=== PATIENT | female | born 1970 | race Caucasian/White ===

== ENCOUNTER → 2021-03-04 00:37 | Outpatient (CLI) | payer OTHER, SELFPAY ==
[2021-03-04 20:36] LABS: SARS-CoV-2 RNA PCR Negative
== END ==
PROVIDERS: PCP Internal Medicine; Visit Provider Internal Medicine Critical Care Medicine
DX: R68.89 Other general symptoms and signs (principal); Z20.822 Contact with and (suspected) exposure to COVID-19
CPT/HCPCS: C9803; U0003; U0005

== ENCOUNTER → 2021-03-25 04:52 | Outpatient (CLI) | payer OTHER, SELFPAY ==
[2021-03-25 21:09] LABS: SARS-CoV-2 RNA PCR Negative
== END ==
PROVIDERS: PCP Internal Medicine; Visit Provider Internal Medicine Critical Care Medicine
DX: Z01.812 Encounter for preprocedural laboratory examination (principal); Z20.822 Contact with and (suspected) exposure to COVID-19
CPT/HCPCS: C9803; U0003; U0005

== ENCOUNTER 2021-03-28 07:25 | Outpatient (CLI) | payer OTHER, SELFPAY ==
--- NOTE | 2021-04-21 13:50 | WPDSLEEPSTUD ---
Sleep Study Date of Study: 03/28/21 Ordering Provider: Bhavesh Young, Interpreting Physician: Roseann Bay MD Sleep Study Type: Split Polysomnogram Height: 1.63 m Weight: 90.718 kg Body Mass Index: 34.3 Neck Circumference (inches): 16 [place]: 5 Reason for Sleep Study Waking up feeling like she is suffocating Sleep History Jessica Ag is a 50 year old woman with episodes of waking at night feeling like she is suffocating. This is happened 20 times over the last year. Her mother and sister and son all have sleep apnea. Patient awakens from sleep feeling short of breath. She rarely awakens at night with heartburn, belching or coughing. She frequently snores and occasionally is loud enough that others complain about it. She frequently has trouble sleeping with a cold. She occasionally wakes up gasping for breath at night and occasionally has told by others that she has breathing problems. She does not sweat excessively night. She rarely notices her heart pounding or beating irregularly at night. She rarely falls asleep during the day. She does not fall asleep involuntarily or while driving. She does not have loss of muscle tone with strong emotion. She does not have daytime difficulties due to excessive sleepiness. She does not feel paralyzed on waking or falling asleep. She occasionally has vivid dreamlike scenes upon awakening or falling asleep and occasionally feels afraid to go to sleep. She rarely has nightmares. She frequently remembers her dreams. She rarely has racing thoughts. She does not feel sad or depressed. She occasionally has anxiety. She rarely has muscular tension. She does not notice parts of her body jerking. She does not kick at night. She occasionally has crawling and aching feelings in her legs and leg pain during the night. She does not have morning jaw pain. She frequently grinds her teeth during sleep. She rarely is bothered by pain during the day. She occasionally is awakened by pain at night. She frequently wakes up feeling stiff in the morning, occasionally with sore achy muscles and occasionally with pain in the neck and spine. Normal bedtime is between 8:00 p.m. and 9:00 p.m. falling asleep within 15 minutes waking 1-2 times at night to urinate. She is able to return to sleep shortly. She wakes the morning at 5:00 a.m.. Her weekend schedule is similar, goes to bed between 8:00 p.m. and 9:00 p.m. and wakes between 5:00 a.m. and 7:00 a.m.. She estimates getting 6-8 hours of sleep at night. She does not regularly take naps. A short nap is not refreshing. She feels better in the afternoon compared to the morning. Habits: Never smoked tobacco. No caffeine, alcohol or recreational drugs. [facility] Past Medical History Medical History (Updated 04/21/21 @ 14:06 by Roseann Bay MD) Hypertension Surgical History Surgical History (Updated 01/02/20 @ 08:11 by Leela Beltran CMA) History of 2 sections 1987, 1992 Social History Social History (Updated 01/02/20 @ 08:12 by Leela Beltran CMA) Alcohol intake: never Substance use: never Medications Home Medications Medication Instructions Recorded Confirmed Type No Home Medications 01/02/20 01/02/20 History Medications: calcium, magnesium and zinc 3 tablets daily vitamin-C 1 tablet daily vitamin E 1 tablet twice a day Sleep Procedure This test was performed using the [place] multiple channel system including EOG, EEG, submental EMG, EKG, nasal and oral airflow using thermistors and nasal pressure sensors, chest and abdominal belts for body position data, and pulse oximetry. Video monitoring was also performed. The study was scored using [facility] guidelines. After the baseline portion the patient met criteria for a titration with an apnea-hypopnea index of 5 and medical comorbidities of hypertension. She used a medium AirFit F 30i and heated humidifier. CPAP was not tolerated
[2021-04-21 13:51] VITALS: BMI 34.3
== END 2021-03-29 06:59 | disposition home or self-care (01) ==
LOC: ANHCSM 08:03
PROVIDERS: PCP Internal Medicine; Visit Provider Internal Medicine
DX: G47.33 Obstructive sleep apnea (adult) (pediatric) (principal); R06.83 Snoring; I10 Essential (primary) hypertension; Z68.34 Body mass index [BMI] 34.0-34.9, adult
CPT/HCPCS: 95810

== ENCOUNTER 2024-10-18 07:31 | Outpatient (CLI) | payer OTHER, SELFPAY ==
--- OUTSIDE RECORDS SUMMARY | 2024-10-18 07:35 | XMS_ITS | Referral Summary ---
Author Organization [facility] Address [address] [place] [address] Care Team Providers Care Supply Planner Name Role Phone Unavailable Primary Care Provider Unavailabl e Source Comments [facility],non-owned Affiliates and Associated Physician Practices is amultiple site organization consisting of ambulatory clinics and hospital sitesin [place], [place], [place] and [place]. This disclosure is being madepursuant to the Care Everywhere program and may not contain all information available regarding this patient. Last updated 18.[facility] Allergies Active Allergy Reactions Criticality Noted Date Comments Penicillins Rash Medium 01/29/2021 Medications Be aware that medications may not be up to date on this document. Always verify current medications with the patient. No known medications Active Problems No known active problems Social History Tobacco Use Types Packs/Day Years Used Date Smoking Tobacco: Never Smokeless Tobacco: Never Alcohol Use Standard Drinks/Week Comments Not Currently 0 (1 standard drink = 0.6 oz pur e alcohol) PHQ-2 Answer Date Recorded PHQ2 TOTAL SCORE 0 01/29/2021 Sex and Gender Information Value Date Recorded Sex Assigned at Not on file Gender Identity Not on file Sexual Orientation Not on file Last Filed Vital Signs Vital Sign Reading Time Taken Comments Blood Pressure 162/84 01/29/2021 11:44 AM CDT Pulse 96 01/29/2021 11:41 AM CDT Temperature 37.4 C (99.4 F) 01/29/2021 11:41 AM CDT Respiratory Rate 16 01/29/2021 11:41 AM CDT Oxygen Saturation 99% 01/29/2021 11:41 AM CDT Inhaled Oxygen Concentration - - Weight 95.5 kg (210 lb 9.6 oz) 01/29/2021 11:41 AM CDT Height 160 cm (5' 3 ) 01/29/2021 11:41 AM CDT Body Mass Index 37.31 01/29/2021 11:41 AM CDT Plan of Treatment Not on file Procedures Procedure Name Priority Date/Time Associated Diagnosis Comments COMPREHENSIVE METABOLIC PANEL Routine 01/29/2021 11:57 AM CDT Hypertension, unspecified type from Last 3 Months or Most Recently Relevant to Health Maintenance Results * COMPREHENSIVE METABOLIC PANEL (01/29/2021 11:57 AM CDT) Sodium 142 136 - 145 mmol/L 01/29/2021 9:50 PM CDT [facility] Potassium 4.2 3.5 - 5.1 mmol/L 01/29/2021 9:50 PM CDT [facility] Chloride 105 98 - 107 mmol/L 01/29/2021 9:50 PM CDT [facility] CO2 28 22 - 29 mmol/L 01/29/2021 9:50 PM CDT [facility] Anion Gap 9 9 - 16 mmol/L 01/29/2021 9:50 PM CDT [facility] Glucose 91 70 - 105 mg/dL 01/29/2021 9:50 PM CDT [facility] BUN 14 9.8 - 20.1 mg/dL 01/29/2021 9:50 PM CDT [facility] Creatinine 0.88 0.57 - 1.11 mg/dL 01/29/2021 9:50 PM CDT [facility] BUN/Creatinine Ratio 15.9 11.2 - 18.1 01/29/2021 9:50 PM CDT [facility] Calcium 9.0 8.4 - 10.2 mg/dL 01/29/2021 9:50 PM CDT [facility] Protein Total 6.9 6.4 - 8.3 gm/dL 01/29/2021 9:50 PM CDT [facility] Albumin 4.0 3.5 - 5.0 gm/dL 01/29/2021 9:50 PM CDT [facility] ALT 17 0 - 55 U/L 01/29/2021 9:50 PM CDT [facility] AST 17 5 - 34 U/L 01/29/2021 9:50 PM CDT [facility] Alkaline Phosphatase 52 40 - 150 U/L 01/29/2021 9:50 PM CDT [facility] Bilirubin Total 0.2 0.2 - 1.2 mg/dL 01/29/2021 9:50 PM CDT [facility] Globulin Total 2.9 1.3 - 4.7 gm/dL 01/29/2021 9:50 PM CDT [facility] Albumin/Globulin Ratio 1.4 1.1 - 2.2 01/29/2021 9:50 PM CDT [facility] Osmolality Calculated 274 260 - 284 mOsm/kg 01/29/2021 9:50 PM CDT [facility] eGFR by MDRD >60 >60 mL/min/1.7 3m2 01/29/2021 9:50 PM CDT [facility] eGFR by MDRD >60 >60 mL/min/1.7 3m2 01/29/2021 9:50 PM CDT [facility] Blood BLOOD SPECIMEN / Unknown Venipuncture / Unknown 01/29/2021 11:57 AM CDT 01/29/2021 11:57 AM CDT Narrative [facility] - 01/29/2021 9:50 PM CDT [facility] Comment: The [place] [employer] recommends a fasting glucose concentration of 99 mg/dL as the upper limit of normal. Note:EGFR Reference Ranges have been established for adults between the ages of 18 and 70. STAGES OF CHRONIC KIDNEY DISEASE Stage Description EGFR 1. Kidney damage with normal or increased EGFR > or =90 mL/min/1.73 m 2. Kidney damage with mildly decreased EGFR 60-89 mL/min/1.73 m 3. Moderately decreased EGFR 30-59 mL/min/1.73 m 4. Severely decreased EGFR 15-29 mL/min/1.73 m 5. Kidney Failure EGFR <15 mL/min/1.73 m Nikolai Rodríguez APRN-[place] LAB - CHEMISTRY O RDERABLES [facility] [address], [place] [id number] [place] [address] from Last 3 Months or Most Recently Relevant to Health Maintenance
--- OUTSIDE RECORDS SUMMARY | 2024-10-18 07:35 | XMS_ITS | Clinical Summary ---
Author Organization [facility] [employer] Address [address] [facility] [place] [address] Care Team Providers Care Enamel Applier Name Role Phone Unavailable Primary Care Provider Unavailabl e Source Comments [facility] [employer],non-owned Affiliates and Associated Physician Practices is amultiple site organization consisting of ambulatory clinics and hospital sitesin [place], [place], [place] and [place]. This disclosure is being madepursuant to the Care Everywhere program and may not contain all information available regarding this patient. Last updated 18.[facility] [employer] Allergies Active Allergy Reactions Criticality Noted Date [...] 01/29/2021 11:41 AM CDT Plan of Treatment Health Maintenance Due Date Last Done Comments COLOGUARD (AGES 45-75) - COL ON CA SCREENING 1969 COLON MONITORING 1969 COLONOSCOPY - COLON CA SCREENING 1969 CT COLONOGRAPHY - COLON CA SCREENING 1969 Colorectal Cancer Screening 1969 FIT - COLON CA SCREENING 1969 FLEX SIG - COLON CA SCREENING 1969 LIPID TESTING 1969 MAMMOGRAM 1969 PAP SMEAR 1969 HIV SCREENING 1984 HEPATITIS C SCREENING 07/05/1987 DTAP/TDAP/TD VACCINES (1 - Tdap) 1988 HEPATITIS B VACCINE (1 of 3 - 19+ 3-dose series) 1988 PNEUMOCOCCAL VACCINE 50+ (1 of 1 - PCV) 2019 ZOSTER VACCINE (1 of 2) 2019 SCREENING FOR DIABETES 01/30/2024 01/29/2021 COVID-19 VACCINE (1 - 2023-2 5 season) 2024 INFLUENZA VACCINE (#1) 2024 DEPRESSION SCREENING 08/09/2024 HIB VACCINE Aged Out No longer eligi ble based on patient's age to complete this topic HPV VACCINE Aged Out No longer eligi ble based on patient's age to complete this topic MENINGOCOCCAL (Group B) VACC INE SHARED DECISION-MAKING Aged Out No longer eligibl e based on patient's age to complete this topic MENINGOCOCCAL GROUPS A/C/Y/W VACCINE Aged Out No longer eligible b ased on patient's age to complete this topic PNEUMOCOCCAL VACCINE Aged Out No long er eligible based on patient's age to complete this topic Procedures Procedure Name Priority Date/Time Associated Diagnosis [...] >60 mL/min/1.7 3m2 01/29/2021 9:50 PM CDT [facility] eGFR by MDRD >60 >60 mL/min/1.7 3m2 01/29/2021 9:50 PM CDT [facility] Blood BLOOD SPECIMEN / Unknown Venipuncture / Unknown 01/29/2021 11:57 AM CDT 01/29/2021 11:57 AM CDT Narrative [facility] - 01/29/2021 9:50 PM CDT ADA Comment: The [place] Diabetes Association recommends a fasting glucose concentration [...] Failure EGFR <15 mL/min/1.73 m Nikolai Rodríguez ASSESSMENT DIRECTOR-CHILD WELFARE SOCIAL WORKER LAB - CHEMISTRY O RDERABLES [facility] [address] [phone] from Last 3 Months or Most Recently Relevant to Health Maintenance
--- OUTSIDE RECORDS SUMMARY | 2024-10-18 07:35 | XMS_ITS | Clinical Summary ---
Author Organization [facility] Address [address] [place] [id number] Care Team Providers Care Soaker Name Role Phone Adrianasam Penny Gomez CERTIFIED VETERINARY TECHNICIAN Primary Care Provider [phone] Allergies Active Allergy Reactions Criticality Noted Date Comments Penicillins Other (see comment) Low 02/02/2021 When she was a child, developed a pimple like lesion, has not had med since Medications calcium-magnesi um-zinc 333-133-5 MG Tab Take 1 tablet by mouth nightly at bedtime. Active lisinopril 10 MG tablet Take 1 tablet (10 mg total) by mouth daily. 30 tablet 02/04/2021 Active Active Problems Problem Noted Date Diagnosed Date Paresthesias 02/02/2021 Family History Medical History Relation Comments Diabetes Brother Diabetes Father Heart Disease Father Heart Disease Mother Hypertension Mother Diabetes Sister Breast Cancer Neg Hx Relation Status Comments Brother Father Mother Sister Social History Tobacco Use Types Packs/Day Years Used Date Smoking Tobacco: Never Smokeless Tobacco: Never Alcohol Use Standard Drinks/Week Comments Never 0 (1 standard drink = 0.6 oz pur e alcohol) AUDIT-C Answer Date Recorded Q1: How often do you have a drink containing alc ohol? 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 Not on file Not on file Not on file Last Filed Vital Signs Vital Sign Reading Time Taken Comments Blood Pressure 129/71 03/23/2021 10:14 AM CDT Pulse 97 03/23/2021 10:14 AM CDT Temperature 37.5 C (99.5 F) 03/23/2021 10:14 AM CDT Respiratory Rate 16 03/23/2021 10:14 AM CDT Oxygen Saturation 98% 03/23/2021 10:14 AM CDT Inhaled Oxygen Concentration - - Weight 90.7 kg (200 lb) 03/23/2021 10:14 AM CDT Height 162.6 cm (5' 4 ) 03/23/2021 10:14 AM CDT Body Mass Index 34.33 03/23/2021 10:14 AM CDT Plan of Treatment Health Maintenance Due Date Last Done Comments Cervical Cancer Screening Pa p Smear (Age 30 to 64) Every 3 Years 1969 Colorectal Cancer Screening Colonoscopy (10 Years) 1969 Annual Physical 1972 Hepatitis C 1987 DTaP, Tdap and Td Vaccines ( 1 - Tdap) 1988 Hepatitis B Vaccines (1 of 3 - 19+ 3-dose series) 1988 Cervical Cancer Screening Pa p with HPV Testing (Age 30 to 64) Every 5 Years 1999 Cervical Cancer Screening with HPV 1999 Zoster Vaccines (1 of 2) 2019 COVID-19 Vaccine ( - 2023-2 5 season) 2024 Influenza Adult (#1) 2024 Mammogram Screening 05/12/2026 05/12/2024 Meningococcal B Vaccine Aged Out No l onger eligible based on patient's age to complete this topic Meningococcal Vaccine Aged Out No smith ann eligible based on patient's age to complete this topic Pneumococcal Vaccine: Pediat rics (0 to 5 Years) and At-Risk Patients (6 to 64 Years) Aged Out No longer eligi ble based on patient's age to complete this topic RSV Immunizations Under 20 Months Aged Out No longer eligible based on patient's age to complete this topic Goals Goal Patient Goal Type Associated Problems Recent Progress Patient-Stated? Author Health - patient able to perform ADLs independently General No Annie Shelby, rf microwave engineer Procedure Name Priority Date/Time Associated Diagnosis Comments MG SCREENING IMPLANT W MAKENNA STANFORD DIGI Routine 05/12/2024 9:22 AM CDT Encounter for screening mammogram for malignant neoplasm of breast from Last 3 Months or Most Recently Relevant to Health Maintenance Results * MG SCREENING IMPLANT W MAKENNA STANFORD DIGI (05/12/2024 9:22 AM CDT) Anatomical Region Laterality Modality Breast Bilateral Mammography 05/12/2024 11:0 6 AM CDT Impressions 05/12/2024 11:14 AM CDT ===== IMPRESSION: ===== 1. Stable mammographic appearance with no new findings to suggest malignancy in either breast. Assessment: ACR BI-RADS 2 - BENIGN FINDING(S) Recommendation: 1:Routine Screening Bilateral Comments: Ordered By: PENNY CUBA Interpreted By: Cj Epps, 05/12/2024 11:06 AM Narrative 05/12/2024 11:14 AM CDT [address] [address] EXAMINATION: Digital bilateral screening mammogram with 3-D tomosynthesis EXAM DATE/TIME: 05/12/2024 8:02 AM REASON FOR EXAM: YEARLY Breast implants in 2002 COMPARISON: 01/03/2014 baseline exam Technique: Digital screening mammography of both breasts was performed in addition to 3-D Tomosynthesis technique. This study was read with the assistance of a computer-aided detection system. Tissue density: There are scattered areas of fibroglandular density. Findings: Bilateral breast prostheses are intact. There is no new focal asymmetry, dominant mass lesion, area of skin thickening, or cluster of suspicious appearing calcifications in either breast to suggest malignancy. us Penny Cuba CERTIFIED VETERINARY TECHNICIAN MAMMO Final Resul t from Last 3 Months or Most Recently Relevant to Health Maintenance Insurance [facility] Care Teams Soaker Relationship Specialty Start Date End Date Penny Cuba FNP [address] [place] [id number] PCP - General Nurse Practitioner Family 05/12/24
--- OUTSIDE RECORDS SUMMARY | 2024-10-18 07:35 | XMS_ITS | Patient Health Summary ---
Author Organization [facility] Address [address] [place] [address] Care Team Providers Care Information Security Consultant Name Role Phone Unavailable Primary Care Provider Unavailabl e Note from [facility],non-owned Affiliates and Associated Physician Practices is amultiple site organization consisting of ambulatory clinics and hospital sitesin [place], [place], [place] and [place]. This disclosure is being madepursuant to the Care Everywhere program and may not contain all information available regarding this patient. Last updated 18.[facility] Allergies * Penicillins(Rash) -Medium Criticality Medications Be aware that medications may not [...] Mass Index 37.31 01/29/2021 11:41 AM CDT Procedures * CBC W AUTO DIFFERENTIAL(Performed 01/29/2021) Performed for Hypertension, unspecified type * COMPREHENSIVE METABOLIC PANEL(Performed 01/29/2021) Performed for Hypertension, unspecified type * TSH REFLEX FREE T4(Performed 01/29/2021) Performed for Hypertension, unspecified type Results * TSH REFLEX FREE T4 (01/29/2021 11:57 AM CDT) [facility] TSH 2.47 0.35 - 4.94 uIU/mL 01/29/2021 10:07 PM CDT [facility] Comment: T4 Free not Performed. TSH within normal range. Blood BLOOD SPECIMEN / Unknown Venipuncture / Unknown 01/29/2021 11:57 AM CDT 01/29/2021 11:57 AM CDT Nikolai Rodríguez MULE DEVELOPER-LOADING MACHINE OPERATOR LAB - CHEMISTRY O RDERABLES [facility] [address] [phone] * (ABNORMAL) CBC WITH DIFFERENTIAL (01/29/2021 11:57 AM CDT) [facility] WBC 4.9 4.0 - 10.5 x10E9/L 01/29/2021 9:49 PM CDT [facility] RBC 4.33 4.20 - 5.40 x10E12/L 01/29/2021 9:49 PM CDT [facility] Hemoglobin 12.7 12.5 - 16.0 gm/dL 01/29/2021 9:49 PM CDT [facility] Hematocrit 38.5 37.0 - 47.0 % 01/29/2021 9:49 PM CDT [facility] MCV 88.9 78.0 - 100.0 fl 01/29/2021 9:49 PM CDT [facility] MCH 29.3 27.0 - 31.0 pg 01/29/2021 9:49 PM CDT [facility] MCHC 33.0 32.0 - 36.0 gm/dL 01/29/2021 9:49 PM CDT [facility] RDW 12.7 11.5 - 14.0 % 01/29/2021 9:49 PM CDT [facility] Platelet Count 280 150 - 450 x10E9/L 01/29/2021 9:49 PM CDT [facility] MPV 11.6(H) 6.0 - 9.5 fl 01/29/2021 9:49 PM CDT [facility] Neutrophil Absolute 2.77 1.5 - 6.6 x10E9/L 01/29/2021 9:49 PM CDT [facility] Lymphocytes Absolute 1.56 1.5 - 3.5 x10E9/L 01/29/2021 9:49 PM CDT [facility] Monocytes Absolute 0.38 0 - 1 x10E9/L 01/29/2021 9:49 PM CDT [facility] Eosinophils Absolute 0.11 0 - 0.7 x10E9/L 01/29/2021 9:49 PM CDT [facility] Basophils Absolute 0.03 0 - 0.1 x10E9/L 01/29/2021 9:49 PM CDT [facility] Immature Granulocytes Absolute 0.02 0.00 - 0.06 x10E9/L 01/29/2021 9:49 PM CDT [facility] nRBC Absolute 0.00 x10E9/L 01/29/2021 9:49 PM CDT [facility] Neutrophils % 56.9 % 01/29/2021 9:49 PM CDT [facility] Lymphocytes % 32.0 % 01/29/2021 9:49 PM CDT [facility] Monocytes % 7.8 % 01/29/2021 9:49 PM CDT [facility] Eosinophils % 2.3 % 01/29/2021 9:49 PM CDT [facility] Basophils % 0.6 % 01/29/2021 9:49 PM CDT [facility] Immature Granulocytes 0.4 % 01/29/2021 9:49 PM CDT [facility] nRBC Auto 0.0 % 01/29/2021 9:49 PM CDT [facility] Blood BLOOD SPECIMEN / Unknown Venipuncture / Unknown 01/29/2021 11:57 AM CDT 01/29/2021 11:57 AM CDT Nikolai Rodríguez MULE DEVELOPER-LOADING MACHINE OPERATOR LAB - HEMATOLOGY ORDERABLES [facility] [address] [phone] * COMPREHENSIVE METABOLIC PANEL (01/29/2021 11:57 AM CDT) Sodium 142 136 - 145 mmol/L 01/29/2021 9:50 PM CDT [facility] Potassium 4.2 3.5 - 5.1 mmol/L 01/29/2021 9:50 PM CDT [facility] Chloride 105 98 - 107 mmol/L 01/29/2021 9:50 PM CDT [facility] CO2 28 22 - 29 mmol/L 01/29/2021 9:50 PM CDT [facility] Anion Gap 9 9 - 16 mmol/L 01/29/2021 9:50 PM CDT [facility] Glucose 91 70 - 105 mg/dL 01/29/2021 9:50 PM CDT [facility] BUN 14 9.8 - 20.1 mg/dL 01/29/2021 9:50 PM CDT [facility] Creatinine 0.88 0.57 - 1.11 mg/dL 01/29/2021 9:50 PM CDT [facility] BUN/Creatinine Ratio 15.9 11.2 - 18.1 01/29/2021 9:50 PM CDT [facility] Calcium 9.0 8.4 - 10.2 mg/dL 01/29/2021 9:50 PM CDT [facility] Protein Total 6.9 6.4 - 8.3 gm/dL 01/29/2021 9:50 PM CDT [facility] Albumin 4.0 3.5 - 5.0 gm/dL 01/29/2021 9:50 PM CDT [facility] ALT 17 0 - 55 U/L 01/29/2021 9:50 PM CDT [facility] AST 17 5 - 34 U/L 01/29/2021 9:50 PM CDT [facility] Alkaline Phosphatase 52 40 - 150 [...] AM CDT 01/29/2021 11:57 AM CDT Narrative [facility] - 01/29/2021 9:50 PM CDT [facility] Comment: The [place] [employer] recommends a fasting glucose concentration [...] Failure EGFR <15 mL/min/1.73 m Nikolai Rodríguez MULE DEVELOPER-LOADING MACHINE OPERATOR LAB - CHEMISTRY O RDERABLES [facility] [address] [place] [address], [facility] [phone]
[2024-10-18 07:56] LABS: Hematocrit 42.9 % (37.0-47.0); Hemoglobin 13.7 g/dL (12.0-15.0); Mean Corpuscular HGB Conc 31.9 g/dl (32-36); Mean Corpuscular Hemoglobin 29.2 pg (26-34); Mean Corpuscular Volume 91.5 fl (80-100); Mean Platelet Volume 10.4 fl (7.4-10.4); Platelet Count Result 249 k/mm3 (150-375); Red Blood Count 4.69 M/mm3 (4.2-5.4); Red Cell Distribution Width 13.8 % (11.5-14.5); White Blood Count 5.5 K/mm3 (4.5-10.0)
[2024-10-18 08:16] LABS: Hemoglobin A1C 5.5 % (<5.7)
[2024-10-18 08:21] LABS: Albumin Level 4.7 g/dL (3.5-5.1); Anion Gap 8 mmol/L (4-12); Blood Urea Nitrogen 17 mg/dL (7-17); Calcium 9.6 mg/dL (8.4-10.2); Carbon Dioxide 31 mmol/L (22-30); Chloride 102 mmol/L (98-107); Estimated Glomerular Filt Rate > 60; Glucose 102 mg/dL (65-110); Potassium 4.1 mmol/L (3.4-5.0); Sodium 141 mmol/L (137-145)
[2024-10-18 08:27] LABS: Prealbumin 25.4 mg/dL (17.6-36.0)
[2024-10-18 08:58] LABS: Iron 74 ug/dL (37-170)
[2024-10-22 09:54] LABS: Vitamin B1 33 nmol/L (8-30)
== END 2024-10-18 07:32 | disposition home or self-care (01) ==
LOC: ANHLAB 07:33
PROVIDERS: PCP Nurse Practitioner Family; Visit Provider Surgery Plastic and Reconstructive Surgery
DX: R63.4 Abnormal weight loss (principal); Z68.32 Body mass index [BMI] 32.0-32.9, adult
CPT/HCPCS: 36415; 80048; 82040; 83036; 83540; 84134; 84425; 85027

== ENCOUNTER 2024-11-09 10:55 | Outpatient (CLI) | payer OTHER, SELFPAY ==
--- NOTE | 2024-11-09 11:19 | ECG_ITS ---
Test Date: 2024-11-09 11:26:00 Measurements Intervals [place] Rate: 66 P: 55 [place]: 140 QRS: 31 QRSD: 97 T: 38 QT: 385 QTc: 405 Interpretive Statements SINUS RHYTHM INCOMPLETE RIGHT BUNDLE BRANCH BLOCK BASELINE ARTIFACT- I, II, III, AVR, AVL BORDERLINE ECG No previous ECG available for comparison Electronically Signed On 11-09-2024 11:28:20 CDT by Gene Atwood D.O.
--- OUTSIDE RECORDS SUMMARY | 2024-11-09 11:50 | XMS_ITS | Clinical Summary ---
Author Organization [facility] Address [address] [place] [address] Care Team Providers Care Telephone Recorder Name Role Phone Adrianasam Penny Gomez LICENSED MARINE ENGINEER Primary Care Provider [phone] Allergies Active Allergy Reactions Criticality Noted Date [...] perform ADLs independently General No Annie Shelby, rent and housing investigator Procedure Name Priority Date/Time Associated Diagnosis Comments [...] 11:06 AM Narrative 05/12/2024 11:14 AM CDT [address] [address] EXAMINATION: Digital bilateral screening mammogram with 3-D [...] breast to suggest malignancy. us Penny Cuba LICENSED MARINE ENGINEER MAMMO Final Resul t from Last 3 Months or Most Recently Relevant to Health Maintenance Insurance [facility] Care Teams Telephone Recorder Relationship Specialty Start Date End Date Penny Cuba FNP [address] [place] [id number] PCP - General Nurse Practitioner Family 05/12/24
--- OUTSIDE RECORDS SUMMARY | 2024-11-09 11:50 | XMS_ITS | Clinical Summary ---
Author Organization [facility] [employer] Address [address] [place] [address] Care Team Providers Care Kraft Digester Operator Name Role Phone Unavailable Primary Care Provider Unavailabl e Source Comments [facility] [employer],non-owned Affiliates and Associated Physician Practices is amultiple site organization consisting of ambulatory clinics and hospital sitesin [place], [place], [place] and [place]. This disclosure is being madepursuant to the Care Everywhere program and may not contain all information available regarding this patient. Last updated 18.[facility] [employer] Allergies Active Allergy Reactions Criticality Noted Date [...] >60 mL/min/1.7 3m2 01/29/2021 9:[address] [facility] eGFR by MDRD >60 >60 mL/min/1.7 3m2 01/29/2021 9:[address] [facility] Blood BLOOD SPECIMEN / Unknown Venipuncture / Unknown 01/29/2021 11:57 AM CDT 01/29/2021 11:[address] [facility] - 01/29/2021 9:50 PM CDT ADA Comment: The [place] Diabetes Association recommends a fasting glucose concentration [...] Failure EGFR <15 mL/min/1.73 m Nikolai Rodríguez DATA COLLECTION TECHNICIAN-CIGAR MAKING MACHINE SUPERVISOR LAB - CHEMISTRY O RDERABLES [facility] [address] [phone] from Last 3 Months or Most Recently Relevant to Health Maintenance
== END 2024-11-09 10:56 | disposition home or self-care (01) ==
LOC: ANHCARD 10:57
PROVIDERS: PCP Nurse Practitioner Family; Visit Provider Anesthesiology
DX: I10 Essential (primary) hypertension (principal); I45.10 Unspecified right bundle-branch block
CPT/HCPCS: 93005

== ENCOUNTER 2024-11-14 00:29 | Day surgery (SDC) | payer OTHER, SELFPAY ==
[2024-11-06 12:39] VITALS: BMI 36.9
--- NOTE | 2024-11-06 12:41 | PC.NURSE ---
Report to the Outpatient Waiting Room, entrance under the green pavilion located off [facility], at time _0600_ on date _[id number]_. Planned Procedure Time: _0730_.? Time changes happen often and if your time is changed the preop area will call you the afternoon before. - You and your visitor will be asked to self-screen and do not enter if you have any COVID symptoms. Please call surgeon if you need to reschedule. - A mask is optional within the hospital at this time. Patients may have clear liquids (water, carbonated beverages, clear teas, apple juice) until 3 hours prior to surgery with a maximum of 20 ounces. - No food from midnight until time of surgery and no smoking, or chewing tobacco (or any form of nicotine). No chewing gum, candy or mints. Take only the following medications with a SIP of water on the morning of surgery: ___None DO NOT STOP ANY OF YOUR OTHER PRESCRIPTION MEDICATIONS PRIOR TO SURGERY EXCEPT THE FOLLOWING Hold all vitamins and supplements for 3 days per anesthesiologist. Medications to discontinue per physician Patient is holding Ozempic per office instructions. Date to take last lynw____[id number]___ Please no make-up, nail croatian, hairspray, perfume, deodorant, or body powder the day of surgery.? No jewelry (including any body piercings) or valuables the day of surgery, leave them at home.? Please take a shower or bath the night before, or the morning of, surgery with an antibacterial soap.? Wear comfortable, loose fitting clothing.? - Jewelry must be removed prior to entering the operating room.? Rings and piercings that are not removed may be cut off. - The hospital will not accept responsibility for valuables.? - Please leave all valuables, including medications, at home the day of surgery. If you are going home after surgery, a licensed cdl b driver must drive you home.? - NO public transportation without another adult if you receive anesthesia. - We recommend that an adult stay with you for 24 hours following discharge. - We also recommend that you do not drive, make important decision, drink alcoholic beverages, or take any drugs that were not prescribed by your health care provider for at least 24 hours after your discharge time. Follow any additional instructions given to you from your surgeon. Telephone instructions given to _Cookiehugh___and asked if any additional questions and then verbalized understanding. Patient advised to call surgeon office or pre surgery nurse liaison [phone] if any additional questions.
[2024-11-14] VITALS (14 sets, daily range): BP systolic 120–168; BP diastolic 68–103; PULSE 75–94; RESP 10–20; TEMP 36.3–36.9; O2SAT 93–100
--- OUTSIDE RECORDS SUMMARY | 2024-11-14 00:32 | XMS_ITS | Clinical Summary ---
Author Organization [facility] Address [address] [place] [address] Care Team Providers Care Six Horse Hitch Driver Name Role Phone Adrianasam Penny Gomez CYLINDER BLOCK HOLE RELINER Primary Care Provider [phone]- [phone] Allergies Active Allergy Reactions Criticality Noted Date [...] Vaccine ( - 2023-2 5 season) 2024 Mammogram Screening 05/12/2026 05/12/2024 Meningococcal B [...] to perform ADLs independently General No Annie Shelby coffee roaster Procedure Name Priority Date/Time Associated Diagnosis Comments [...] 11:06 AM Narrative 05/12/2024 11:14 [place] [address] EXAMINATION: Digital bilateral screening mammogram with 3-D [...] breast to suggest malignancy. us Penny Cuba CYLINDER BLOCK HOLE RELINER MAMMO Final Resul t from Last 3 Months or Most Recently Relevant to Health Maintenance Insurance [facility] Care Teams Six Horse Hitch Driver Relationship Specialty Start Date End Date Penny Cuba FNP [address] [place] [id number] PCP - General Nurse Practitioner Family 05/12/24
--- OUTSIDE RECORDS SUMMARY | 2024-11-14 00:32 | XMS_ITS | Clinical Summary ---
Author Organization [facility] ? Address [address] [place] [address] Care Team Providers Care Mesh Worker Name Role Phone Unavailable Primary Care Provider Unavailabl e Source Comments [facility] ?,non-owned Affiliates and Associated Physician Practices is amultiple site organization consisting of ambulatory clinics and hospital sitesin [place], [place], [place] and [place]. This disclosure is being madepursuant to the Care Everywhere program and may not contain all information available regarding this patient. Last updated 18.[facility] ? Allergies Active Allergy Reactions Criticality Noted Date [...] >60 mL/min/1.7 3m2 01/29/2021 9:50 PM CDT [facility] eGFR by MDRD >60 >60 mL/min/1.7 3m2 01/29/2021 9:50 PM CDT [facility] Blood BLOOD SPECIMEN / Unknown Venipuncture / Unknown 01/29/2021 11:57 AM CDT 01/29/2021 11:57 AM CDT Narrative [facility] - 01/29/2021 9:50 PM CDT ADA Comment: The [place] Diabetes Association recommends a fasting glucose concentration [...] Failure EGFR <15 mL/min/1.73 m Nikolai Rodríguez EXPLOSIVE OPERATOR BOMB-SUPERVISING AIRPLANE PILOT LAB - CHEMISTRY O RDERABLES [facility] [address] [phone] from Last 3 Months or Most Recently Relevant to Health Maintenance
[2024-11-14] MEDS: LACTATED RINGERS 1,000 ML 30 ML IV CONT ×2 (06:30→12:07)
[2024-11-14 06:38] LABS: Glucose Point of Care 98 mg/dl (65-105)
[2024-11-14 06:48] LABS: Urine Cotinine NEGATIVE
[2024-11-14] MEDS: TRANEXAMIC ACID 1,000MG/ISO100 1,000 MG/100 ML BAG 200 MG IVPB (06:58)
--- NOTE | 2024-11-14 07:00 | WPDHPUPDATE1 ---
History and Physical Update Update Date/Time: 11/14/24 07:00 History and Physical has been reviewed, including an updated exam of the patient. There are NO changes in the patient's condition. Risks, benefits, and alternatives have been discussed and questions answered. Patient agrees to proceed with procedure.
--- NOTE | 2024-11-14 07:00 | W.PM.PROC2 ---
Procedure Note - Detailed Date of Procedure 11/14/24 Pre-op Diagnosis skin laxity, hx of breast augmentation Post-op Diagnosis Same Procedure Performed Bilateral implant removal Bilateral breast mastopexy Bra roll excision with suction lipectomy Surgeon Viktor Rutledge MD Anesthesia General Findings Bilateral inverted T Superior medial pedicle Bilateral intact silicone smooth Lipoaspirate: 3,000 cc Description of Procedure They are here today for the above procedures. Previously and again today the risks, benefits, alternatives were discussed in extensive detail. I wanted them to be very realistic about the risks involved as well as expectations. We discussed aftercare and what to monitor for. I was very upfront about the risks of wound breakdown leading to loss of skin, open wounds, and need for additional procedures with permanent deformity. We discussed DVT/PE risks and management. Made sure answered all of their questions to their satisfaction today and consent was obtained. They were marked in the preoperative holding area with their verification. The patient was taken to the operating room. Anesthesia was provided by anesthesiology. A Oliveira catheter was started. Posterior Placed prone on the operating room table with care taken to protect from injury. Prepped and draped in a standard sterile fashion. A surgical time-out was taken. Stab incisions were made and tumescent solution was infiltrated. Once adequate time was allowed for hemostasis a 5mm basket and 4mm matilda cannula were utilized to complete suction lipectomy based on S.A.F.E. technique in multiple planes and passes. Suction lipectomy continued to result based on pre-operative planning, intra-operative observation, and rolling pinch test which were in full agreement. A 10 blade was used to make the upper bra roll incision and dissection was continued inferior elevating what we necessary for closure. I excised intervening tissue. This was closed with 3 point suture with 2-0 Vicryl followed 2-0 PDO strattafix, 3-0 stratafix ,running subcuticular 4-0 Monocryl, and tissue glue. Laterally jose roberto were placed for turning. Breast Patient was then placed supine with care taken to protect from injury. Prepped and draped in a standard sterile fashion. Stab incisions were made and tumescent solution infiltrated laterally. Implant removal 10 blade used make an incision along the IMF. Dissection was continued down to the capsules identified it is an elevated above the capsule for majority of the capsule. At this point the implant and the capsule were removed. Capsule sent to pathology. I copiously irrigated with 3 L of saline solution on TUR tubing. Verified strict hemostasis. Mastopexy I tailor tacked the breast into position. Placed her in a sitting position. Verified the nipple-areolar location based on preoperative planning as well as intraoperative observations and measurements in full agreement. She was placed supine. I de-epithelialized the pedicle. Breast was tailor tacked into position. A 5mm basket and 4mm matilda cannula were utilized to complete suction lipectomy based on S.A.F.E. technique in multiple planes and passes lateral breast / chest wall. This was supine and while sitting. Suction lipectomy continued to result based on pre-operative planning, intra-operative observation, and rolling pinch test which were in full agreement. I closed along the IMF with 2-0 Stratafix. Along the vertical with 2-0 PDS. I closed around the John Paul with 3-0 strata fix. 3-0 Monocryl along the vertical. 3-0 Stratafix along the IMF. I finally closed everything with running subcuticular 4-0 Monocryl and tissue glue. Dressings and a surgical bra were placed. She tolerated the procedure well. Estimated Blood Loss 100 Drains No Packing No Pathology Yes (Bilateral breast capsules) Complications No immediate complications Condition Stable Disposition PACU
--- NOTE | 2024-11-14 07:28 | WPDANESEPPF ---
Anes - Initial Pre Proc Eval Procedure: Operation Date: 11/14/24 07:30 Proposed Procedures p Bilateral Breast Implant Removal with Bilateral Mastopexy, - Viktor Rutledge MD s Bra Roll Excision with Liposuction - Viktor Rutledge MD Date/Time: 11/14/24 07:28 Surgeon: Viktor Rutledge MD Pre Op Diagnosis: skin laxity, hx of breast augmentation Patient Data Age: 54 Gender: F Height: 1.63 m Weight: 98.9 kg Last Vital Signs Temp 36.9 C 11/14/24 06:49 Pulse 79 11/14/24 06:49 Resp 16 11/14/24 06:49 BP 104/103 H 11/14/24 06:49 Pulse Ox 100 11/14/24 06:49 O2 Del Method Room Air 11/14/24 06:49 Allergies Allergy/AdvReac Type Severity Reaction Status Date / Time Penicillins Allergy Rash Verified 11/14/24 06:46 Home Medications ?Medication ?Instructions ?Recorded ?Confirmed ?Type hydrochlorothiazide 12.5 mg tablet 12.5 mg PO DAILY #90 tabs 06/28/24 11/06/24 Rx cholecalciferol (vitamin D3) 25 1,000 unit PO ONCE 11/06/24 11/06/24 History mcg (1,000 unit) capsule (Vitamin D3) coenzyme Q10 100 mg capsule (Co 100 mg PO DAILY 11/06/24 11/06/24 History Q-10) cyanocobalamin (vitamin B-12) 1,000 mcg PO DAILY 11/06/24 11/06/24 History 1,000 mcg tablet,extended release (Vitamin B-12 ER) vitamins A,C,O-gfao-xlwiyl 4,296 1 cap PO DAILY 11/06/24 11/06/24 History mcg-226 mg-90 mg capsule (PreserVision AREDS) semaglutide 2 mg/dose (8 mg/3 mL) 2 mg (0.75 mL) subcut WEEKLY #3 mL 11/08/24 Rx subcutaneous pen injector (Ozempic) Laboratory Tests 11/14/24 11/14/24 06:00 06:29 POC Capillary Glucose 98 mg/dl (65-105) Cotinine Negative Patient hx anesthesia problems: none Family hx anesthesia problems: none Results Review: All pre-operative results and documents have been reviewed as part of the pre-operative evaluation. [facility] Past Medical History Medical History Lumbar pain Neck pain Breast implant removal status Hypertension Surgical History Surgical History Hx of breast augmentation History of back surgery History of 2 sections 1987, 1992 Family History Family History Father Diabetes mellitus Cerebrovascular accident CVD (cardiovascular disease) Mother Hypertension Epilepsy Social History Social History Social History: 06/28/24 Patient declined SDOH Smoking status: Never smoker Alcohol intake: never Substance use: never Lack of Transportation: No Lack of Food: Never True Current Housing: I Have Housing Concerned About Future Housing: No Difficulty Paying Gas/Electric Bills: No Difficulty Paying for Meds: No Currently Unemployed: No Education: Decline to Answer Difficulty w/ Childcare or Family Care: No Living arrangements: with family Occupation/Education: occupation 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 Informed Consent: The patient's anesthetic plan and its attendant risks and benefits were discussed with the patient/family/POA. Questions were solicited and answers provided to the satisfaction of the patient/family/POA.
--- NOTE | 2024-11-14 07:28 | WPDANESEPPF ---
Anes - Initial Pre Proc Eval Procedure: Operation Date: 11/14/24 07:30 Proposed Procedures p Bilateral Breast Implant Removal with Bilateral Mastopexy, - Viktor Rutledge MD s Bra Roll Excision with Liposuction - Viktor Rutledge MD Date/Time: 11/14/24 07:28 Surgeon: Viktor Rutledge MD Pre Op Diagnosis: skin laxity, hx of breast augmentation Patient Data Age: 54 Gender: F Height: 1.63 m Weight: 98.9 kg Last Vital Signs Temp 36.9 C 11/14/24 06:49 Pulse 79 11/14/24 06:49 Resp 16 11/14/24 06:49 BP 104/103 H 11/14/24 06:49 Pulse Ox 100 11/14/24 06:49 O2 Del Method Room Air 11/14/24 06:49 Allergies Allergy/AdvReac Type Severity Reaction Status Date / Time Penicillins Allergy Rash Verified 11/14/24 06:46 Home Medications ?Medication ?Instructions ?Recorded ?Confirmed ?Type hydrochlorothiazide 12.5 mg tablet 12.5 mg PO DAILY #90 tabs 06/28/24 11/06/24 Rx cholecalciferol (vitamin D3) 25 1,000 unit PO ONCE 11/06/24 11/06/24 History mcg (1,000 unit) capsule (Vitamin D3) coenzyme Q10 100 mg capsule (Co 100 mg PO DAILY 11/06/24 11/06/24 History Q-10) cyanocobalamin (vitamin B-12) 1,000 mcg PO DAILY 11/06/24 11/06/24 History 1,000 mcg tablet,extended release (Vitamin B-12 ER) vitamins A,C,N-cbcw-lozoue 4,296 1 cap PO DAILY 11/06/24 11/06/24 History mcg-226 mg-90 mg capsule (PreserVision AREDS) semaglutide 2 mg/dose (8 mg/3 mL) 2 mg (0.75 mL) subcut WEEKLY #3 mL 11/08/24 Rx subcutaneous pen injector (Ozempic) Laboratory Tests 11/14/24 11/14/24 06:00 06:29 POC Capillary Glucose 98 mg/dl (65-105) Cotinine Negative Patient hx anesthesia problems: none Family hx anesthesia problems: none Results Review: All pre-operative results and documents have been reviewed as part of the pre-operative evaluation. [facility] Past Medical History Medical History Breast implant removal status Hypertension Lumbar pain Neck pain Surgical History Surgical History History of 2 sections 1987, 1992 History of back surgery Hx of breast augmentation Family History Family History Father Diabetes mellitus Cerebrovascular accident CVD (cardiovascular disease) Mother Hypertension Epilepsy Social History Social History Social History: 06/28/24 Patient declined SDOH Smoking status: Never smoker Alcohol intake: never Substance use: never Lack of Transportation: No Lack of Food: Never True Current Housing: I Have Housing Concerned About Future Housing: No Difficulty Paying Gas/Electric Bills: No Difficulty Paying for Meds: No Currently Unemployed: No Education: Decline to Answer Difficulty w/ Childcare or Family Care: No Living arrangements: with family Occupation/Education: occupation Additional occupation/education comments: [employer] Spiritual care concerns: No Agree to blood products: Yes Anes - Eval Final PreProcedure Day of Procedure 11/14/24 07:28 Patient weight: obese Heart: regular rate and rhythm Lungs: clear to auscultation Airway: Mallampati scale class II Neurological: alert and oriented Last oral intake: >/= 8 hours ASA classification: III Emergent: no Anesthetic plan: proceed Anesthesia type and monitoring: general ETT and standard monitoring Results Review: All pre-operative results and documents have been reviewed as part of the pre-operative evaluation. Informed Consent: The patient's anesthetic plan and its attendant risks and benefits were discussed with the patient/family/POA. Questions were solicited and answers provided to the satisfaction of the patient/family/POA. Patient states that she has been off ozempic since August. Uses Bipap every night, encourage use tonight after procedure.
[2024-11-14] MEDS: ceFAZolin 2 GM/D5W 50 ML 2 GM/50 ML BAG IVPB ×2 (07:33→11:37)
[2024-11-14] MEDS: LACTATED RINGERS IRRIG 1,000 ML, LIDOCAINE 1% LOCAL INJ 50 ML, EPINEPHrine HCL INJ 1 MG... INFILTRATE (07:33)
[2024-11-14 12:45] LABS: Glucose Point of Care 126 mg/dl (65-105)
[2024-11-14] MEDS: fentaNYL CITRATE INJ (*CRX) 100 MCG/2 ML VIAL 25 MCG IV PUSH ×8 (12:49→15:15)
[2024-11-14] MEDS: oxyCODONE HCL (*CRX) 5 MG TAB IR PO (14:02)
== END 2024-11-14 15:43 | disposition home or self-care (01) ==
PROVIDERS: PCP Nurse Practitioner Family; Visit Provider Surgery Plastic and Reconstructive Surgery
PROC: (CPT 19316; principal; 2024-11-14 07:30)
PROC: (CPT 15877; 2024-11-14 07:30)
DX: Z41.1 Encounter for cosmetic surgery (principal); L57.4 Cutis laxa senilis
CPT/HCPCS: 19371; 19316; 15877; 15839; 80307; 82948; 88304; A9270; J0171; J0690; J1100; J1171; J2003; J2004; J2250; J2371; J2704; J3010; J7120